=== PATIENT | female | born 1940 | race Caucasian/White ===

== ENCOUNTER 2022-12-15 12:59 | Inpatient (IN) | payer MEDICARE ==
[~2022-12-15] VITALS: Ht 154.9 cm; Wt 51.3 kg
[2022-12-15] MEDS ORDERED: SENN-261 PO (13:25)
[2022-12-15] MEDS ORDERED: ACET-2154 PO (13:25)
[2022-12-15] MEDS ORDERED: PROP15DR EACHEYE (13:25)
[2022-12-15] MEDS ORDERED: ALBU2.5V13 NEB (13:25)
[2022-12-15] MEDS ORDERED: POLY17PO4 PO (13:25)
[2022-12-15] MEDS ORDERED: IPRA0.2S48 NEB (13:25)
[2022-12-15] MEDS ORDERED: CARV6.252 PO (13:25)
[2022-12-15] MEDS ORDERED: APIX5TAB PO (13:25)
[2022-12-15] MEDS ORDERED: TRAZ-182 PO (13:25)
[2022-12-15] MEDS ORDERED: ATOR40TA PO (13:25)
[2022-12-15] MEDS ORDERED: ESCI20TA PO (13:25)
[2022-12-15] MEDS ORDERED: CLON0.5T4 PO (13:25)
[2022-12-15] MEDS ORDERED: LEVO75TA7 PO (13:25)
[2022-12-15 13:56] LABS: ACETAMINOPHEN < 2.0 ug/mL (10-30)
[2022-12-15] MEDS ORDERED: ALBUTEROL SULFATE 2.5 MG/ 0.5 ML NEBU NEB PRN (14:45)
[2022-12-15] MEDS ORDERED: IPRATROPIUM BROMIDE 0.5 MG/2.5 ML NEBU NEB PRN (14:45)
[2022-12-15] MEDS ORDERED: ACETAMINOPHEN 325 MG TABLET-SA PATIENTS-PAIN ONLY PO PRN (14:45)
[2022-12-15] MEDS ORDERED: MAG HYDROX/AL HYDROX/SIMETH 30 ML LIQUID UDC PO PRN (15:00)
[2022-12-15] MEDS ORDERED: MAGNESIUM HYDROXIDE 30 ML LIQUID UDC PO PRN (15:00)
[2022-12-15] MEDS ORDERED: ZOLPIDEM 5 MG TABLET PO PRN (15:00)
[2022-12-15] MEDS ORDERED: BLOOD SUGAR DIAGNOSTIC 1 EACH STRIP VI ONE (15:00)
[2022-12-15] MEDS ORDERED: LORAZEPAM 0.5 MG TABLET PO PRN (15:00)
[2022-12-15] MEDS ORDERED: LORAZEPAM 1 MG TABLET PO PRN (15:30)
[2022-12-15 16:23] VITALS: BP 124/66
[2022-12-15 16:26] VITALS: BP 124/66
[2022-12-15] MEDS: CARVEDILOL 6.25 MG TABLET PO SCH (17:53)
[2022-12-15] MEDS ORDERED: APIXABAN 5 MG TABLET ONE (20:03)
[2022-12-15 20:08] VITALS: BP 128/59
[2022-12-15] MEDS: ATORVASTATIN 40 MG TABLET PO SCH (20:26)
[2022-12-15] MEDS: APIXABAN 5 MG TABLET PO SCH (20:27)
[2022-12-16] MEDS: LEVOTHYROXINE SODIUM 75 MCG TABLET PO SCH (06:43)
[2022-12-16 07:40] LABS: HEMATOCRIT 39.5 % (31.2-41.9); MEAN CORPUSCULAR HEMOGLOBIN 31.9 uug (24.7-32.8); MEAN CORPUSCULAR VOLUME 96.3 fL (75.5-95.3); PLATELET COUNT (AUTO) 284 K/uL (179-408)
[2022-12-16 07:52] LABS: CREATININE 0.9 mg/dL (0.6-1.3); POTASSIUM 3.8 mmol/L (3.5-5.1)
[2022-12-16 07:56] VITALS: BP 127/60
[2022-12-16] MEDS: SENNOSIDES 1 TABLET PO SCH (08:38)
[2022-12-16] MEDS: POLYVINYL ALCOHOL OPHT DROPS 15 ML BOTTLE EACHEYE SCH ×4 (08:39→20:37)
[2022-12-16] MEDS: CARVEDILOL 6.25 MG TABLET PO SCH ×2 (08:39→17:12)
[2022-12-16] MEDS: APIXABAN 5 MG TABLET PO SCH ×2 (08:40→17:13)
[2022-12-16] MEDS: ACETAMINOPHEN 325 MG TABLET PO PRN (08:59)
[2022-12-16] MEDS ORDERED: VENLAFAXINE XR 37.5 MG CAP.SR.24H PO SCH (09:45)
[2022-12-16] MEDS ORDERED: APIX5TAB PO (14:04)
[2022-12-16 16:27] VITALS: BP 150/67
[2022-12-16 19:04] LABS: *BILIRUBIN,URIN NEGATIVE (NEGATIVE); *BLOOD, URINE 3+ (NEGATIVE); *COLOR,URINE YELLOW (YELLOW); *KETONES,URINE TRACE (NEGATIVE); *UROBILINOGEN,URINE 0.2 E.U./dl (NORMAL); LEUKOCYTE ESTERASE ,URINE 1+ (NEGATIVE); NITRITE, URINE NEGATIVE (NEGATIVE); PH,URINE 6.5 (5.0-8.0); UGLUCOSE NEGATIVE (NEGATIVE)
[2022-12-16 19:07] LABS: *CLARITY,URINE HAZY (CLEAR)
[2022-12-16 19:09] LABS: BACTERIA,URINE FEW /HPF (NONE SEEN); RBC,URINE 80-100 /HPF (0-3); SQUAMOUS EPITHELIAL CELL,UR NONE SEEN /HPF (NONE SEEN)
[2022-12-16 19:46] VITALS: BP 110/62
[2022-12-16] MEDS: ATORVASTATIN 40 MG TABLET PO SCH (20:37)
[2022-12-16] MEDS: TRAZODONE 50 MG TABLET PO SCH (20:37)
[2022-12-17] MEDS: LEVOTHYROXINE SODIUM 75 MCG TABLET PO SCH (05:43)
[2022-12-17 08:00] VITALS: BP 129/66
[2022-12-17] MEDS: SENNOSIDES 1 TABLET PO SCH (08:37)
[2022-12-17] MEDS: POLYVINYL ALCOHOL OPHT DROPS 15 ML BOTTLE EACHEYE SCH ×4 (08:39→20:43)
[2022-12-17] MEDS: CARVEDILOL 6.25 MG TABLET PO SCH ×2 (08:39→16:42)
[2022-12-17] MEDS: APIXABAN 5 MG TABLET PO SCH ×2 (08:41→08:52)
[2022-12-17] MEDS: ARIPIPRAZOLE 2 MG TABLET PO SCH (10:07)
[2022-12-17] MEDS: ESCITALOPRAM OXALATE 10 MG TABLET PO SCH (10:07)
[2022-12-17 16:27] VITALS: BP 133/69
[2022-12-17 19:51] VITALS: BP 136/54
[2022-12-17] MEDS: TRAZODONE 50 MG TABLET PO SCH (20:43)
[2022-12-17] MEDS: ATORVASTATIN 40 MG TABLET PO SCH (20:43)
[2022-12-18] MEDS: LEVOTHYROXINE SODIUM 75 MCG TABLET PO SCH (06:39)
[2022-12-18 08:00] VITALS: BP 113/65
[2022-12-18] MEDS: ESCITALOPRAM OXALATE 10 MG TABLET PO SCH (08:37)
[2022-12-18] MEDS: ARIPIPRAZOLE 2 MG TABLET PO SCH (08:37)
[2022-12-18] MEDS: CARVEDILOL 6.25 MG TABLET PO SCH ×2 (08:38→17:37)
[2022-12-18] MEDS: POLYVINYL ALCOHOL OPHT DROPS 15 ML BOTTLE EACHEYE SCH ×4 (08:38→20:54)
[2022-12-18] MEDS: SENNOSIDES 1 TABLET PO SCH (08:56)
[2022-12-18] MEDS: GLUCERNA SHAKE 237 ML CAN PO SCH (08:56)
[2022-12-18] MEDS: ACETAMINOPHEN 325 MG TABLET PO PRN (15:31)
[2022-12-18 16:00] VITALS: BP 116/56
[2022-12-18] MEDS: CEphaleXIN 500 MG CAPSULE PO SCH (17:37)
[2022-12-18 20:02] VITALS: BP 100/52
[2022-12-18] MEDS: TRAZODONE 50 MG TABLET PO SCH (20:54)
[2022-12-18] MEDS: ATORVASTATIN 40 MG TABLET PO SCH (20:54)
[2022-12-19] MEDS: ACETAMINOPHEN 325 MG TABLET PO PRN (06:09)
[2022-12-19] MEDS: LEVOTHYROXINE SODIUM 75 MCG TABLET PO SCH (06:09)
[2022-12-19 08:38] VITALS: BP 99/64
[2022-12-19] MEDS: POLYVINYL ALCOHOL OPHT DROPS 15 ML BOTTLE EACHEYE SCH ×4 (09:00→20:13)
[2022-12-19] MEDS: GLUCERNA SHAKE 237 ML CAN PO SCH (09:00)
[2022-12-19] MEDS: ARIPIPRAZOLE 2 MG TABLET PO SCH (09:35)
[2022-12-19] MEDS: ESCITALOPRAM OXALATE 10 MG TABLET PO SCH (09:35)
[2022-12-19] MEDS: SENNOSIDES 1 TABLET PO SCH (09:35)
[2022-12-19] MEDS: CEphaleXIN 500 MG CAPSULE PO SCH ×2 (09:36→17:05)
[2022-12-19] MEDS: CARVEDILOL 6.25 MG TABLET PO SCH ×2 (09:36→17:06)
[2022-12-19 15:41] VITALS: BP 103/63
[2022-12-19] MEDS: ATORVASTATIN 40 MG TABLET PO SCH (20:12)
[2022-12-19] MEDS: TRAZODONE 50 MG TABLET PO SCH (20:12)
[2022-12-19 21:09] VITALS: BP 116/54
[2022-12-20] MEDS: ACETAMINOPHEN 325 MG TABLET PO PRN (05:45)
[2022-12-20] MEDS: LEVOTHYROXINE SODIUM 75 MCG TABLET PO SCH (05:46)
[2022-12-20 07:07] VITALS: BP 103/73
[2022-12-20] MEDS: ARIPIPRAZOLE 2 MG TABLET PO SCH (08:59)
[2022-12-20] MEDS: CARVEDILOL 6.25 MG TABLET PO SCH ×2 (08:59→17:52)
[2022-12-20] MEDS: CEphaleXIN 500 MG CAPSULE PO SCH ×2 (08:59→17:51)
[2022-12-20] MEDS: SENNOSIDES 1 TABLET PO SCH (09:00)
[2022-12-20] MEDS: GLUCERNA SHAKE 237 ML CAN PO SCH (09:00)
[2022-12-20] MEDS: ESCITALOPRAM OXALATE 10 MG TABLET PO SCH (09:02)
[2022-12-20] MEDS: POLYVINYL ALCOHOL OPHT DROPS 15 ML BOTTLE EACHEYE SCH ×4 (09:03→20:51)
[2022-12-20] MEDS: APIXABAN 5 MG TABLET PO SCH ×2 (10:37→20:51)
[2022-12-20 16:27] VITALS: BP 130/67
[2022-12-20 20:11] VITALS: BP 115/46
[2022-12-20] MEDS: TRAZODONE 50 MG TABLET PO SCH (20:51)
[2022-12-20] MEDS: ATORVASTATIN 40 MG TABLET PO SCH (20:52)
[2022-12-21] MEDS: LEVOTHYROXINE SODIUM 75 MCG TABLET PO SCH (06:07)
[2022-12-21 08:02] VITALS: BP 132/80
[2022-12-21] MEDS: POLYVINYL ALCOHOL OPHT DROPS 15 ML BOTTLE EACHEYE SCH ×4 (08:17→20:16)
[2022-12-21] MEDS: CEphaleXIN 500 MG CAPSULE PO SCH ×2 (08:17→16:24)
[2022-12-21] MEDS: ARIPIPRAZOLE 2 MG TABLET PO SCH (08:17)
[2022-12-21] MEDS: SENNOSIDES 1 TABLET PO SCH (08:17)
[2022-12-21] MEDS: ESCITALOPRAM OXALATE 10 MG TABLET PO SCH (08:17)
[2022-12-21] MEDS: CARVEDILOL 6.25 MG TABLET PO SCH ×2 (08:18→16:25)
[2022-12-21] MEDS: GLUCERNA SHAKE 237 ML CAN PO SCH (08:18)
[2022-12-21] MEDS: APIXABAN 5 MG TABLET PO SCH ×2 (08:19→16:25)
[2022-12-21] MEDS ORDERED: APIXABAN 5 MG TABLET PO SCH (09:00)
[2022-12-21 09:46] LABS: HEMATOCRIT 41.6 % (31.2-41.9); MEAN CORPUSCULAR HEMOGLOBIN 31.2 uug (24.7-32.8); MEAN CORPUSCULAR VOLUME 95.2 fL (75.5-95.3); PLATELET COUNT (AUTO) 381 K/uL (179-408)
[2022-12-21] MEDS: ENSURE ENLIVE (VAN) 240 ML LIQUID PO SCH (10:00)
[2022-12-21 10:02] LABS: ALANINE AMINOTRANSFERASE 41 U/L (14-59); ALKALINE PHOSPHATASE 65 U/L (50-136); ASPARTATE AMINOTRANSFERASE 19 U/L (15-37); BILIRUBIN,TOTAL 1.1 mg/dL (0.2-1.0); CARBON DIOXIDE 28 mmol/L (21-32); CHLORIDE 103 mmol/L (98-107); CREATININE 1.2 mg/dL (0.6-1.3); GLUCOSE 111 mg/dL (74-106); POTASSIUM 3.3 mmol/L (3.5-5.1); TOTAL PROTEIN, SERUM 6.4 g/dL (6.4-8.2); UREA NITROGEN, BLOOD 23 mg/dL (7-18)
[2022-12-21] MEDS ORDERED: ALBUTEROL SULFATE 8 GM HFA.AER.AD IH PRN (10:45)
[2022-12-21] MEDS ORDERED: GUAIFENESIN/DEXTROMETHORPHAN 5 ML UDC PO PRN (10:45)
[2022-12-21 16:00] VITALS: BP 121/58
[2022-12-21 20:03] VITALS: BP 137/64
[2022-12-21] MEDS: ATORVASTATIN 40 MG TABLET PO SCH (20:16)
[2022-12-21] MEDS: TRAZODONE 50 MG TABLET PO SCH (20:16)
[2022-12-22] MEDS: LEVOTHYROXINE SODIUM 75 MCG TABLET PO SCH (06:08)
[2022-12-22 08:09] VITALS: BP 122/52
[2022-12-22] MEDS: ARIPIPRAZOLE 2 MG TABLET PO SCH (08:11)
[2022-12-22] MEDS: POLYVINYL ALCOHOL OPHT DROPS 15 ML BOTTLE EACHEYE SCH ×4 (08:11→20:14)
[2022-12-22] MEDS: SENNOSIDES 1 TABLET PO SCH (08:11)
[2022-12-22] MEDS: ESCITALOPRAM OXALATE 10 MG TABLET PO SCH (08:11)
[2022-12-22] MEDS: CEphaleXIN 500 MG CAPSULE PO SCH ×2 (08:11→16:57)
[2022-12-22] MEDS: APIXABAN 5 MG TABLET PO SCH ×2 (08:12→16:58)
[2022-12-22] MEDS: CARVEDILOL 6.25 MG TABLET PO SCH ×2 (08:14→16:57)
[2022-12-22] MEDS: ENSURE ENLIVE (VAN) 240 ML LIQUID PO SCH (08:14)
[2022-12-22] MEDS: ACETAMINOPHEN 325 MG TABLET PO PRN (11:08)
[2022-12-22 16:10] VITALS: BP 124/52
[2022-12-22 19:51] VITALS: BP 117/43
[2022-12-22] MEDS: TRAZODONE 50 MG TABLET PO SCH (20:14)
[2022-12-22] MEDS: ATORVASTATIN 40 MG TABLET PO SCH (20:14)
[2022-12-23] MEDS: LEVOTHYROXINE SODIUM 75 MCG TABLET PO SCH (07:10)
[2022-12-23 08:05] VITALS: BP 118/57
[2022-12-23] MEDS: ARIPIPRAZOLE 2 MG TABLET PO SCH (08:27)
[2022-12-23] MEDS: SENNOSIDES 1 TABLET PO SCH (08:27)
[2022-12-23] MEDS: CEphaleXIN 500 MG CAPSULE PO SCH (08:27)
[2022-12-23] MEDS: ACETAMINOPHEN 325 MG TABLET PO PRN (08:27)
[2022-12-23] MEDS: ESCITALOPRAM OXALATE 10 MG TABLET PO SCH (08:27)
[2022-12-23] MEDS: CARVEDILOL 6.25 MG TABLET PO SCH ×2 (08:33→17:54)
[2022-12-23] MEDS: POLYVINYL ALCOHOL OPHT DROPS 15 ML BOTTLE EACHEYE SCH ×4 (08:34→21:55)
[2022-12-23] MEDS: ENSURE ENLIVE (VAN) 240 ML LIQUID PO SCH (08:36)
[2022-12-23] MEDS: APIXABAN 5 MG TABLET PO SCH ×2 (09:38→17:55)
[2022-12-23 16:42] VITALS: BP 136/53
[2022-12-23 19:47] VITALS: BP 126/54
[2022-12-23] MEDS: ATORVASTATIN 40 MG TABLET PO SCH (21:54)
[2022-12-23] MEDS: TRAZODONE 50 MG TABLET PO SCH (21:54)
[2022-12-24] MEDS: ACETAMINOPHEN 325 MG TABLET PO PRN (05:55)
[2022-12-24] MEDS: LEVOTHYROXINE SODIUM 75 MCG TABLET PO SCH (06:00)
[2022-12-24 08:01] VITALS: BP 123/47
[2022-12-24] MEDS: ESCITALOPRAM OXALATE 10 MG TABLET PO SCH (08:47)
[2022-12-24] MEDS: ARIPIPRAZOLE 2 MG TABLET PO SCH (08:47)
[2022-12-24 08:52] VITALS: BP 123/57
[2022-12-24] MEDS: CARVEDILOL 6.25 MG TABLET PO SCH (08:52)
[2022-12-24] MEDS: POLYVINYL ALCOHOL OPHT DROPS 15 ML BOTTLE EACHEYE SCH (08:52)
[2022-12-24] MEDS: SENNOSIDES 1 TABLET PO SCH (08:53)
[2022-12-24] MEDS ORDERED: APIXABAN 5 MG TABLET PO SCH (09:00)
[2022-12-24] MEDS: ENSURE ENLIVE (VAN) 240 ML LIQUID PO SCH (09:25)
== END 2022-12-24 11:00 | disposition home or self-care (01) | DRG 885 ==
LOC: ER 13:02 → GPS 14:17
PROVIDERS: ADMIT Psychiatry & Neurology Psychiatry; ATTEND Registered Nurse
DX: F33.2 Major depressive disorder, recurrent severe without psychotic features (principal); T42.4X2D Poisoning by benzodiazepines, intentional self-harm, subsequent encounter; J44.9 Chronic obstructive pulmonary disease, unspecified; E03.9 Hypothyroidism, unspecified; E78.5 Hyperlipidemia, unspecified; Z87.440 Personal history of urinary (tract) infections; Z95.0 Presence of cardiac pacemaker; F41.9 Anxiety disorder, unspecified; I10 Essential (primary) hypertension; Z86.711 Personal history of pulmonary embolism; Z79.01 Long term (current) use of anticoagulants; F60.9 Personality disorder, unspecified; Z91.51 Personal history of suicidal behavior
CPT/HCPCS: 36415; 84443; 85025; 93005; A4663; J3535